=== PATIENT | male | born 1985 | race Caucasian/White ===

== ENCOUNTER 2022-05-01 08:24 | Emergency (ER) | payer MEDICAID ==
[~2022-05-01] VITALS: Ht 170.2 cm; Wt 113.0 kg
[2022-05-01 08:48] VITALS: BP 134/96
[2022-05-01] MEDS ORDERED: DEXAMETHASONE 10 MG/ML VIAL IM ONE (10:45)
[2022-05-01] MEDS ORDERED: NAPR-1176 MT (10:50)
[2022-05-01] MEDS ORDERED: CYCL10TA21 PO (10:50)
== END 2022-05-01 11:00 | disposition home or self-care (01) ==
LOC: ER 08:43
DX: M79.621 Pain in right upper arm (principal); X58.XXXA Exposure to other specified factors, initial encounter; Y93.89 Activity, other specified; Y92.9 Unspecified place or not applicable
CPT/HCPCS: 96372; 99283; J1100